=== PATIENT | male | born 1940 | race Caucasian/White ===

== ENCOUNTER 2019-10-24 20:57 | Inpatient (IN) | payer MEDICARE, SELFPAY ==
[2019-10-24] VITALS (12 sets, daily range): BP systolic 115–168; BP diastolic 53–97; PULSE 109–120; RESP 14–177; TEMP 36.8; O2SAT 87–98
--- NOTE | ~2019-10-24 | XR_ITS ---
EXAMINATION: XR chest 1V portable DATE: 10/25/2019 08:27 INDICATION: Shortness of breath TECHNIQUE: frontal view of the chest was obtained. COMPARISON: Chest radiograph dated 11/03/2019 FINDINGS: No significant change in opacities in the bilateral mid and lower lung zones. No pleural effusion or pneumothorax. The cardiomediastinal silhouette is normal. Atherosclerotic aorta. Dual lead pacemaker seen with leads projecting over the expected locations of the right atrium and right ventricle. Spina l stimulator lead projects over the central canal of the mid to lower thoracic spine. IMPRESSION: 1. Unchanged opacities in the bilateral mid and lower lung zones which could represent pulmonary ludwin a, atelectasis, pneumonia or some combination thereof. Reviewed, dictated and finalized at location A. IMPRESSION: 1. Unchanged opacities in the bilateral mid and lower lung zones which could re present pulmonary edema, atelectasis, pneumonia or some combination thereof.
--- NOTE | ~2019-10-24 | XR_ITS ---
EXAMINATION: XR chest 1V portable EXAM DATE: 10/24/2019 21:20 INDICATION: CODE BLUE, cardiac arrest. TECHNIQUE: Portable AP frontal chest x-ray was obtained. There is no prior study for comparison. FINDINGS: Moderate amount of indistinct bilateral reticulation, could be edema or developing ARDS. Mo re confluent left basilar airspace disease. Acute infectious process not excludable. The cardiomedias tinal silhouette is prominent but magnified on this AP technique. There is no pneumothorax suspected. There are no pleural effusions. There are no osseous abnormalities identified. There is a dual lead pacemaker/AICD seen with leads projecting over the expected locations of the right atrial appendage a nd right ventricle. IMPRESSION: Bilateral indistinct reticulation and more confluent left basilar airspace disease. Cons ider edema, ARDS. Can't exclude infectious process. Reviewed, dictated and finalized at location A. IMPRESSION: Bilateral indistinct reticulation and more confluent left basilar airspace disease. Consider edema, ARDS. Can't exclude infectious process.
--- NOTE | ~2019-10-24 | XR_ITS ---
EXAMINATION: XR chest 1V portable DATE: 10/26/2019 08:13 INDICATION: Aspiration pneumonia TECHNIQUE: frontal view of the chest was obtained. COMPARISON: Chest radiograph dated 10/25/2019 FINDINGS: Interval improvement in opacities in the bilateral lower lung zones. Linear discoid atelectasis/scarr ing at the left midlung zone. No pneumothorax or pleural effusion. The cardiomediastinal silhouette i s normal. Dual lead pacemaker seen with leads projecting over the expected locations of the right atr ium and right ventricle. Likely spinal stimulator lead project over the central canal of the mid thor acic spine. IMPRESSION: 1. Decreasing opacities in the bilateral lower lung zones which could represent improvement in aspira tion, pneumonia, atelectasis, pulmonary edema or some combination thereof. Reviewed, dictated and finalized at location A. IMPRESSION: 1. Decreasing opacities in the bilateral lower lung zones which could represent improvement in aspiration, pneumonia, atelectasis, pulmonary edema or some com bination thereof.
[2019-10-24] MEDS: NALOXONE HCL INJ 2 MG/2 ML AMP IV PUSH ×2 (21:02→21:21)
[2019-10-24 21:10] LABS: Glucose Point of Care 171 (65-105)
--- NOTE | 2019-10-24 21:21 | ECG_ITS ---
Measurements Intervals [place] Rate: 90 P: TX: 0 QRS: -72 QRSD: 170 T: 106 QT: 402 QTc: 494 Interpretive Statements ATRIAL SENSE- ELECTRONIC VENTRICULAR PACEMAKER SHORT RUN OF ATRIAL TACHYCARDIA AND VENTRICULAR PREMATURE COMPLEX BASELINE ARTIFACT- I, II, III, AVR, AVL NO FURTHER INTERPRETATION IS POSSIBLE ABNORMAL ECG Electronically Signed On 10-25-2019 8:04:44 CDT by Orion Gaona D.O.
--- NOTE | 2019-10-24 21:24 | ED.OVERDOSE ---
HPI - Overdose General Chief Complaint: Overdose Stated Complaint: ams Time Seen by Provider: 10/24/19 21:20 History of Present Illness HPI Narrative: Patient presents via EMS for respiratory distress. He was given Suboxone at his hotel room by a family member for his chronic pain. His respirations became decreased and his daughter saw that he was having garbled breathing. He was asleep. She is transporting him from [facility] to her home in the [place]. They took him out of the long term, so that he could stay with family during this COVID situation. He had been in rehab after getting a spine stimulator. He got the spine stimulator for his chronic back pain. His daughter wishes him to be DNR. EMS had given 3 doses of Narcan 2 mg in route. He had a pulse and was not being bagged in route. Here he was unresponsive, no pulse, and needed bagging. CPR was done for just a few minutes when his pulse resumed, he had some left leg movement, and started breathing on his own. More Narcan was given and a Narcan drip was ordered. His daughter is present with us in the ED. complaint: accidental overdose Onset (ago): hour(s) Timing confirmed by: family member Intent: other (Pain control) How Overdose Was Discovered: called family/friend and family/friend present at time Context: Intentional Overdose: other (Pain managed) Treatments Prior to Arrival: oxygen, narcan and IV fluids Related Data Home Medications Medication Instructions Recorded Confirmed alprazolam 0.5 mg PO HS PRN 10/24/19 amlodipine 5 mg PO DAILY 10/24/19 aripiprazole [Abilify] 5 mg PO DAILY 10/24/19 aspirin 81 mg PO DAILY 10/24/19 baclofen 5 mg PO DAILY 10/24/19 clopidogrel [Plavix] 75 mg PO DAILY 10/24/19 duloxetine [Cymbalta] 60 mg PO BID 10/24/19 dutasteride 0.5 mg PO DAILY 10/24/19 gabapentin 600 mg PO TID 10/24/19 levothyroxine 100 mcg PO DAILY 10/24/19 morphine 15 mg PO Q8H 10/24/19 multivit with min-folic acid mg PO 10/24/19 [Adult One Daily Multivitamin] naloxegol [Movantik] 25 mg PO DAILY 10/24/19 simvastatin 40 mg PO HS 10/24/19 tadalafil 5 mg PO DAILY 10/24/19 tamsulosin 0.4 mg PO HS 10/24/19 Allergies Allergy/AdvReac Type Severity Reaction Status Date / Time clindamycin Allergy Hives Verified 10/24/19 21:33 escitalopram [From Lexapro] Allergy Diarrhea Verified 10/24/19 21:33 metoprolol Allergy Confusion Verified 10/24/19 21:33 Sulfa (Sulfonamide Allergy Hives Verified 10/24/19 21:33 Antibiotics) venlafaxine [From Effexor] Allergy Hives Verified 10/24/19 21:33 nuts Allergy Swelling Uncoded 10/24/19 21:33 of Lip/Tongue/Throat Review of Systems Review of Systems: Narrative: Review of systems is unable to be obtained due to the patient being unresponsive. His daughter has a picture of him on her phone from yesterday where he was sitting up and visiting with the family in good humor. [facility] Past Medical History Medical History (Updated 10/24/19 @ 22:09 by Anupama Denise MD) Chronic back pain History of common carotid artery stent placement Surgical History Surgical History (Updated 10/24/19 @ 21:30 by Anupama Denise MD) History of permanent cardiac pacemaker placement Social History Social History (Updated 10/24/19 @ 21:30 by Anupama Denise MD) Smokeless tobacco user: chewing tobacco Exam Narrative: Exam Narrative: GENERAL: Patient without spontaneous breathing, no palpable pulse, nonresponsive. HEAD: Normocephalic, atraumatic. ENT: Nares clear, no rhinorrhea or epistaxis. Mucous membranes moist. Chewing tobacco and mouth. Dentures. NECK: Supple. CHEST: No spontaneous breathing HEART: No pulse ABDOMEN: Soft, nontender, nondistended, EXTREMITIES: No edema. SKIN: Warm, dry, no rash. NEURO: Unresponsive. . Course Reevaluation(s) Reevaluation #1: Went back in the room to talk to the daughter again. She is very sure that he will be DNR, DNI. She understands that she cannot visit un
[2019-10-24 21:33] LABS: Basophils Absolute Auto 0.1 K/mm3 (0.0-0.1); Basophils Percent Auto 0.7 % (0.2-1.2); Eosinophils Absolute Auto 1.1 K/mm3 (0-0.3); Eosinophils Percent Auto 6.1 % (0-4.4); Hematocrit 49.3 % (42.0-52.0); Hemoglobin 14.8 g/dL (14.0-18.0); Immature Granulocyte Absolute 0.13 K/mm3 (0.00-0.031); Immature Granulocyte Percent A 0.7 % (0-0.5); Lymphocytes Absolute Auto 5.55 K/mm3 (0.9-3.2); Lymphocytes Percent Auto 31.4 % (18.3-44.2); Mean Corpuscular Volume 93.2 fl (80-100); Mean Platelet Volume 11.5 fl (7.4-10.4); Monocytes Absolute Auto 1.5 K/mm3 (0.1-0.6); Monocytes Percent Auto 8.2 % (2.6-8.5); Neutrophils Absolute Auto 9.4 K/mm3 (1.3-6.7); Neutrophils Percent Auto 52.9 % (45.5-73.1); Platelet Count Result 341 k/mm3 (150-375); Red Blood Count 5.29 M/mm3 (4.6-6.20); Red Cell Distribution Width 15.4 % (11.5-14.5); White Blood Count 17.7 K/mm3 (4.5-10.0)
[2019-10-24 21:42] LABS: Ethanol < 10 mg/dL (<10)
[2019-10-24 21:43] LABS: INR 1.1; Prothrombin Time 14.2 Seconds (11.1-14.7)
[2019-10-24 21:44] LABS: Partial Thromboplastin Time 26.1 SECONDS (22.3-36.8)
[2019-10-24 21:45] LABS: Alveolar/Arterial O2 Gradient 122.4 mmHg; Base Excess ABG -3.8 mEq/l (+/-2.0); Fractional Inspired Oxygen 40 %; HCO3 ABG 27.6 mEq/l (22.0-26.0); Oxygen Content ABG 17.4 %vol (16.0-22.0); Oxyhemoglobin 87.3 % THb (90.0-100.0); PO2 ABG 65.3 mmHg (80.0-100.0); PO2 FiO2 Ratio Arterial Blood 1.63 %; Total Hemoglobin 14.2 g/dL (12.0-18.0)
[2019-10-24 21:46] LABS: Lactic Acid Reflex 2.3 mmol/L (0.7-2.1)
[2019-10-24 21:50] LABS: Device NASAL CANNULA; Modified Allen's Test Pass; Oxygen Saturation ABG 84.7 % (95.0-100.0); PCO2 ABG 84.8 mmHg (35.0-45.0); Site Drawn RIGHT RADIAL
--- NOTE | 2019-10-24 21:52 | PCRCNOTE ---
ABG drawn at 2139 10/24/19 possible mixed venous. Pt sating 93% on 5L NC on pulse ox monitor. notified
[2019-10-24 22:33] LABS: Add Urine Microscopic? YES; Appearance Urine Clear (Clear); Bacteria Urine Trace /hpf; Bilirubin Urine Negative (Negative); Blood Urine Negative (Negative); Color Urine Yellow (Yellow); Glucose Urine UA Negative (Negative); Ketones Urine Negative (Negative); Leukocyte Esterase Ur Negative LEU/UL (Negative); Nitrate Urine Negative (Negative); Protein Urine 2+ mg/dL (Negative); RBC Urine 0-2 /hpf (0-2); Specific Grav Ur 1.013 (1.001-1.035); Squamous Epithelial Cell Urine Rare /hpf (Few); Urobilinogen Urine Negative mg/dL (<2.0); WBC Urine 0-3 /hpf
[2019-10-24 22:39] LABS: NT Pro B Type Natriuretic Pept 185 PG/ML (5-100)
[2019-10-24 22:48] LABS: Amphetamine Screen Urine Negative (Negative); Barbiturate Screen Urine Negative (Negative); Benzodiazepines Screen Urine Positive (Negative); Cannabinoid Screen Urine Negative (Negative); Cocaine Screen Urine Negative (Negative); Methadone Screen Urine Negative (Negative); Opiate Screen Urine Negative (Negative); Phencyclidine Screen Urine Negative (Negative)
[2019-10-24 22:50] LABS: Alanine Aminotransferase 11 U/L (4-50); Albumin Level 3.4 g/dL (3.5-5.1); Alkaline Phosphatase 92 U/L (38-126); Anion Gap 6 mmol/L (8-16); Aspartate Amino Transferase 25 U/L (17-59); Bilirubin,Total < 0.1 mg/dL (0.2-1.3); Blood Urea Nitrogen 23 mg/dL (9-20); Carbon Dioxide 29 mmol/L (22-30); Chloride 105 mmol/L (98-107); Creatine Kinase 39 U/L (55-170); Estimated CRCL calculation 47 ml/min; Estimated Glomerular Filt Rate 53; Glucose 168 mg/dL (75-110); Potassium 4.1 mmol/L (3.4-5.0); Sodium 140 mmol/L (137-145)
--- NOTE | 2019-10-24 23:45 | PM.IMHP ---
H&P: HPI History of Present Illness Date/Time: 10/24/19 22:30 Chief complaint: Accidental overdose Narrative: The patient was seen and examined while in the ER. Source of information is the patient's daughter Luann Pritchard. Darnell Vera is a 80 year old male with a past medical history of coronary artery disease, peripheral vascular disease, hypertension and chronic pain who presented to the ER via EMS from a local hotel due to accidental overdose of narcotics. The patient's daughter who is a critical care nurse provided information. The patient had evidently been having progressive decline over the last 5 years. He had been living with his son for the last 5 years but his son was not no longer able to meet the patient's needs. He has chronic back pain and has had more frequent falls due to his legs giving out over the last 6 months. Approximately 2 weeks ago he was hospitalized due to mild pneumonia and was discharged to acute rehab for 2 weeks. He ran out of acute rehab days and was transitioned to longterm placement. The patient was placed any double room with no TV. The family had been informed that they would be able to visit the patient in that the patient would be able to go outside but this turned out not to be the case . The patient was placed in a double room with 1 TV and the patient was unhappy. The patient was alert and oriented x3 at baseline. His daughter did not feel comfortable with this placement so her siblings agreed to drive the patient from [place] up to our area. She met the patient at [facility] and had planned to take the patient to [facility] where she lives. They were then planning to transition the patient to hospice care. When the daughter arrived to the hotel the patient was in good spirits and watching a musical performance. However, prior to his daughter's arrival he had reported that his butt hurt. The patient's son-in-law evidently takes Suboxone due to chronic narcotic dependence and offered the patient a pain pill. The patient was becoming tired so she took him to the room. Shortly thereafter she noticed that the patient was having sonorous respirations and was cyanotic. She ran out to her car to get her pulse oximeter and when she returned to the room the patient's pulse ox was reading at 50%. she noted that is pupils were pinpoint. She called EMS. EMS administered multiple doses of Narcan in route to the hospital. When the patient was being transferred to the ER bed the patient was noted to not have any respirations and was pulseless. He received 1 round of CPR and medications with return of perfusing circulation and independent respirations. The patient was placed on a Narcan drip. Patient is noted to have very coarse breath sounds. On examination he is noted to have chewing tobacco in his mouth. The daughter informs me that the brother in all had just given the patient is chewing tobacco prior to her arrival. The patient is occasionally coughing in the ER and daughter has suctioned sputum multiple times from the patient's mouth. The patient will arouse and is oriented to his daughter's name, month, and year. He can also tell me his date and name. The patient does fall asleep rapidly but again arouses with verbal stimuli and tactile stimuli. The daughter for via the patient is chronically incontinent of urine. The patient has had a chronic decubitus ulcer to his buttock which she tells me opened a few months ago but has again healed. The buttocks are erythematous bilaterally but do kady. He does not have an open wound to his buttocks currently. He is noted to have a rash in his groin. The daughter informed me that he wears upper dentures and has a lower partial. The patient had evidently been reporting that his lower partial was causing him pain. The patient is noted to have a necrotic tooth in the left lower jaw. The few remaining teeth he has are in poor
[2019-10-25] VITALS (64 sets, daily range): BP systolic 106–160; BP diastolic 45–111; PULSE 69–118; RESP 15–29; TEMP 36.1–37.3; O2SAT 87–100
[2019-10-25 00:29] LABS: Reflex Lactic Acid Yes or No Add Lactic
[2019-10-25] MEDS: AMPICILLIN SULB 3 GM/NS 100 ML 3 GM/100 ML VIAL IVPB ×4 (00:51→19:17)
[2019-10-25 00:57] LABS: Anion Gap 6 mmol/L (8-16); Blood Urea Nitrogen 23 mg/dL (9-20); Calcium 8.1 mg/dL (8.4-10.2); Carbon Dioxide 27 mmol/L (22-30); Chloride 104 mmol/L (98-107); Estimated CRCL calculation 51 ml/min; Estimated Glomerular Filt Rate 58; Glucose 183 mg/dL (75-110); Potassium 4.6 mmol/L (3.4-5.0); Sodium 137 mmol/L (137-145)
[2019-10-25 00:57] LABS: Lactic Acid 1.6 mmol/L (0.7-2.1)
[2019-10-25 04:09] LABS: Basophils Absolute Auto 0.1 K/mm3 (0.0-0.1); Basophils Percent Auto 0.7 % (0.2-1.2); Eosinophils Absolute Auto 0.5 K/mm3 (0-0.3); Eosinophils Percent Auto 2.5 % (0-4.4); Hematocrit 48.4 % (42.0-52.0); Hemoglobin 14.2 g/dL (14.0-18.0); Immature Granulocyte Absolute 0.11 K/mm3 (0.00-0.031); Immature Granulocyte Percent A 0.6 % (0-0.5); Mean Corpuscular HGB Conc 29.3 g/dl (32-36); Mean Corpuscular Hemoglobin 27.9 pg (26-34); Mean Corpuscular Volume 95.1 fl (80-100); Mean Platelet Volume 11.3 fl (7.4-10.4); Monocytes Percent Auto 10.4 % (2.6-8.5); Neutrophils Absolute Auto 14.2 K/mm3 (1.3-6.7); Neutrophils Percent Auto 73.8 % (45.5-73.1); Platelet Count Result 296 k/mm3 (150-375); Red Blood Count 5.09 M/mm3 (4.6-6.20); Red Cell Distribution Width 15.3 % (11.5-14.5); White Blood Count 19.2 K/mm3 (4.5-10.0)
[2019-10-25 04:23] LABS: Lactic Acid Reflex 3.9 mmol/L (0.7-2.1)
[2019-10-25 04:38] LABS: Alveolar/Arterial O2 Gradient 132.6 mmHg; Base Excess ABG -1.8 mEq/l (+/-2.0); Carboxyhemoglobin 0.5 % THb (0-2.0); Fractional Inspired Oxygen 32 %; Methemoglobin ABG 0.5 %THb (0-1.5); Oxygen Content ABG 18.5 %vol (16.0-22.0); Oxyhemoglobin 90.7 % THb (90.0-100.0); PO2 ABG 63.6 mmHg (80.0-100.0); PO2 FiO2 Ratio Arterial Blood 1.99 %; Reduced Hemoglobin 8.3 %THb (0-5.0); Total Hemoglobin 14.5 g/dL (12.0-18.0)
[2019-10-25 04:41] LABS: PCO2 ABG 64.1 mmHg (35.0-45.0); pH ABG 7.243 (7.350-7.450)
[2019-10-25 04:42] LABS: Device NASAL CANNULA; Modified Allen's Test Pass; Site Drawn RIGHT RADIAL
[2019-10-25] MEDS: SODIUM CHLORIDE 0.9% IV 1,000 ML 75 ML IV CONT (09:20)
--- NOTE | 2019-10-25 09:59 | WPDCNINT ---
Assessment and Plan Assessment and plan (1) Narcotic overdose: Qualifiers: Encounter type: initial encounter Injury intent: accidental or unintentional Qualified Code(s): T40.601A - Poisoning by unspecified narcotics, accidental (unintentional), initial encounter Code(s): T40.601A - Poisoning by unspecified narcotics, accidental (unintentional), initial encounter Status: Acute Assessment and Plan: patient with accidental Suboxone overdose - patient was found to be lethargic with respiratory depression, hypoxia which led to cardiopulmonary arrest. - Patient currently on Narcan infusion, is awake, follows simple commands and hemodynamically stable - buprenorphine which is a component of Suboxone has a long half life - will wean Narcan as tolerated to adequate respiratory rate and mental status (2) Pneumonia: Qualifiers: Laterality: bilateral Lung location: unspecified part of lung Pneumonia type: due to unspecified organism Qualified Code(s): J18.9 - Pneumonia, unspecified organism Code(s): J18.9 - Pneumonia, unspecified organism Status: Acute Assessment and Plan: possible aspiration pneumonia as he was chewing tobacco prior to having a cardiopulmonary arrest. - tobacco was being suctioned ETT - patient started on Unasyn - blood cultures have been obtained and pending (3) Chronic back pain: Code(s): M54.9 - Dorsalgia, unspecified; G89.29 - Other chronic pain Status: Acute Assessment and Plan: patient with history of spinal stenosis status post spine stimulator for chronic back pain - patient was given Suboxone fall at by his son-in-law who has been taking Suboxone for chronic narcotic dependence - will avoid narcotics for pain at this time (4) Cardiopulmonary arrest: Code(s): I46.9 - Cardiac arrest, cause unspecified Status: Acute Assessment and Plan: brief cardiopulmonary arrest likely related to respiratory depression from narcotic overdose - ROSC with 1 round of epinephrine and CPR - patient is awake, alert, oriented, nonfocal (5) Hypercapnia: Code(s): R06.89 - Other abnormalities of breathing Status: Acute Assessment and Plan: hypercapnic respiratory failure related to narcotic overdose - repeat ABG shows improvement in PCO 2, continue to monitor - may require a BiPAP (6) DVT prophylaxis: Code(s): Z29.9 - Encounter for prophylactic measures, unspecified Status: Acute Assessment and Plan: SCDs Additional Plan discuss with daughter Luann, updated her with patient's condition and plan of care. I answered all questions Code status: full code critical care time spent: 42 minutes [employer] Observer Helper Consult Note Consult date: 10/25/19 Time Seen: 07:04 Reason for consult: accidental overdose of opiates /Suboxone HPI: Darnell Vera is a 80 year old male with past medical history of benzodiazepine overdose, BPH, chronic back pain, coronary artery disease, decubitus ulcer, depression, essential hypertension, history of pneumonia, gout, hyperlipidemia, hypothyroidism, peripheral vascular disease, spinal stenosis with chronic back pain, spinal stimulator presented to the ED via EMS flex and overdose with narcotics - Suboxone. history from medical records and daughter who stated that patient was given Suboxone by patient's son low as he was having lower back pain. After receiving the narcotic, patient became lethargic and the daughter noticed sonorous respirations and was cyanotic. Pulse ox red 50% on a pulse oxygen meter that the daughter had in her car, off note the daughter is a critical care nurse and [place]. Upon arrival of the EMS did give him multiple rounds of Narcan enroute to the hospital. With the patient was transferred to the ER bed he was not breathing and was pulseless.. Brief CPR with 1 round of epinephrine was done before ROSC. He was also chewing tobacco prio
[2019-10-25] MEDS: SODIUM CHLORIDE 0.9% IV 500 ML IV CONT (12:14)
--- NOTE | 2019-10-25 14:58 | PM.IMPN ---
Progress Note: A&P Assessment and Plan (1) Narcotic overdose: Qualifiers: Encounter type: initial encounter Injury intent: accidental or unintentional Qualified Code(s): T40.601A - Poisoning by unspecified narcotics, accidental (unintentional), initial encounter Code(s): T40.601A - Poisoning by unspecified narcotics, accidental (unintentional), initial encounter Status: Acute Assessment and Plan: The patient is on a Narcan drip in the ICU. The pipe coverer helper was consulted from the ER. 10/25/19 14:58 patient is 80-year-old male with several comorbidities, specially chronic back pain and recently had a spinal stimulator placed patient is traveling from [place] to [place] with his daughter who is a critical care nurse [place], patient was given his regular dose of Suboxone however became hypoxic and somnolent his daughter checked the pulse ox and was reading 50%, EMS was called patient was given Narcan which did improve his symptoms somewhat and he was brought to emergency department for further evaluation and patient was given additional Narcan as well as placed on Narcan drip, concern the patient may have aspirated while he was somnolent and chewing tobacco, currently patient is quite somnolent being treated for aspiration pneumonia and 1 Narcan drip, discussed with pipe coverer helper will continue Narcan drip and further recommendation to follow (2) Pneumonia: Qualifiers: Laterality: bilateral Lung location: unspecified part of lung Pneumonia type: due to unspecified organism Qualified Code(s): J18.9 - Pneumonia, unspecified organism Code(s): J18.9 - Pneumonia, unspecified organism Status: Acute Assessment and Plan: likely due to aspiration given that the patient was chewing tobacco at the time of his respiratory arrest. Will adjust antibiotic therapy to Unasyn. Blood cultures have been obtained. The patient is NPO until mentation improves. Aspiration precautions. (3) Respiratory arrest: Code(s): R09.2 - Respiratory arrest Status: Acute Assessment and Plan: Due to accidental narcotic overdose resulting in acute hypoxic hypercapnic respiratory failure. Continue supplemental oxygen. Repeat ABG in a.m. (4) Cardiac arrest: Code(s): I46.9 - Cardiac arrest, cause unspecified Status: Acute Assessment and Plan: Due to primary respiratory arrest from narcotic overdose. (5) Candidiasis: Code(s): B37.9 - Candidiasis, unspecified Status: Acute Assessment and Plan: Aloe Caret cream has been ordered. (6) Urinary incontinence due to benign prostatic hyperplasia: Code(s): N40.1 - Benign prostatic hyperplasia with lower urinary tract symptoms; N39.498 - Other specified urinary incontinence Status: Acute Assessment and Plan: I would like to avoid placing a Coon given the patient has chronic urinary incontinence and we would likely have difficulty with urinary retention post catheterization. Subjective Date/time seen: 10/25/19 14:58 patient is 80-year-old male with several comorbidities, specially chronic back pain and recently had a spinal stimulator placed patient is traveling from [place] to [place] with his daughter who is a critical care nurse [place], patient was given his regular dose of Suboxone however became hypoxic and somnolent his daughter checked the pulse ox and was reading 50%, EMS was called patient was given Narcan which did improve his symptoms somewhat and he was brought to emergency department for further evaluation and patient was given additional Narcan as well as placed on Narcan drip, concern the patient may have aspirated while he was somnolent and chewing tobacco, currently patient is quite somnolent being treated for aspiration pneumonia and 1 Narcan drip, discussed with pipe coverer helper will continue Narcan drip and further recommendation t
[2019-10-26] VITALS (34 sets, daily range): BP systolic 115–158; BP diastolic 51–126; PULSE 74–109; RESP 15–34; TEMP 36.4–37.4; O2SAT 89–94
[2019-10-26] MEDS: SODIUM CHLORIDE 0.9% IV 1,000 ML 75 ML IV CONT (00:06)
[2019-10-26] MEDS: AMPICILLIN SULB 3 GM/NS 100 ML 3 GM/100 ML VIAL IVPB ×4 (00:07→17:53)
[2019-10-26 08:12] LABS: Basophils Absolute Auto 0.1 K/mm3 (0.0-0.1); Basophils Percent Auto 0.5 % (0.2-1.2); Eosinophils Absolute Auto 0.5 K/mm3 (0-0.3); Eosinophils Percent Auto 3.6 % (0-4.4); Hematocrit 41.9 % (42.0-52.0); Hemoglobin 12.6 g/dL (14.0-18.0); Immature Granulocyte Absolute 0.06 K/mm3 (0.00-0.031); Immature Granulocyte Percent A 0.5 % (0-0.5); Lymphocytes Absolute Auto 1.21 K/mm3 (0.9-3.2); Lymphocytes Percent Auto 9.1 % (18.3-44.2); Mean Corpuscular HGB Conc 30.1 g/dl (32-36); Mean Corpuscular Hemoglobin 27.6 pg (26-34); Mean Corpuscular Volume 91.9 fl (80-100); Mean Platelet Volume 11.3 fl (7.4-10.4); Monocytes Absolute Auto 1.2 K/mm3 (0.1-0.6); Monocytes Percent Auto 9.2 % (2.6-8.5); Neutrophils Absolute Auto 10.3 K/mm3 (1.3-6.7); Neutrophils Percent Auto 77.1 % (45.5-73.1); Platelet Count Result 238 k/mm3 (150-375); Red Blood Count 4.56 M/mm3 (4.6-6.20); Red Cell Distribution Width 15.2 % (11.5-14.5); White Blood Count 13.3 K/mm3 (4.5-10.0)
[2019-10-26 08:24] LABS: Lactic Acid Reflex 0.6 mmol/L (0.7-2.1)
[2019-10-26 08:25] LABS: Anion Gap 4 mmol/L (8-16); Blood Urea Nitrogen 13 mg/dL (9-20); Calcium 7.6 mg/dL (8.4-10.2); Carbon Dioxide 30 mmol/L (22-30); Chloride 103 mmol/L (98-107); Estimated CRCL calculation 73 ml/min; Estimated Glomerular Filt Rate > 60; Glucose 133 mg/dL (75-110); Magnesium 1.7 mg/dL (1.6-2.3); Phosphorus 2.9 mg/dL (2.5-4.5); Sodium 137 mmol/L (137-145)
--- NOTE | 2019-10-26 11:18 | WPDINTPN ---
Progress Note: A&P Assessment and Plan (1) Narcotic overdose: Qualifiers: Encounter type: initial encounter Injury intent: accidental or unintentional Qualified Code(s): T40.601A - Poisoning by unspecified narcotics, accidental (unintentional), initial encounter Code(s): T40.601A - Poisoning by unspecified narcotics, accidental (unintentional), initial encounter Status: Acute Assessment and Plan: RESOLVED, OFF THE NARCAN INFUSION - patient with accidental Suboxone overdose - patient was found to be lethargic with respiratory depression, hypoxia which led to cardiopulmonary arrest. - PATIENT MUCH MORE AWAKE (2) Pneumonia: Qualifiers: Laterality: bilateral Lung location: unspecified part of lung Pneumonia type: due to unspecified organism Qualified Code(s): J18.9 - Pneumonia, unspecified organism Code(s): J18.9 - Pneumonia, unspecified organism Status: Acute Assessment and Plan: possible aspiration pneumonia as he was chewing tobacco prior to having a cardiopulmonary arrest. - tobacco was being suctioned ETT - patient started on Unasyn - blood cultures growing gram-positive cocci in clusters 2/2 bottles, started patient on vancomycin, - patient is afebrile, white count is trending down. If Blood cultures come back as contamination or CoNs will discontinue vancomycin (3) Chronic back pain: Code(s): M54.9 - Dorsalgia, unspecified; G89.29 - Other chronic pain Status: Acute Assessment and Plan: patient with history of spinal stenosis status post spine stimulator for chronic back pain - patient was given Suboxone fall at by his son-in-law who has been taking Suboxone for chronic narcotic dependence - will avoid narcotics for pain at this time, Tylenol for chronic back pain (4) Cardiopulmonary arrest: Code(s): I46.9 - Cardiac arrest, cause unspecified Status: Acute Assessment and Plan: brief cardiopulmonary arrest likely related to respiratory depression from narcotic overdose - ROSC with 1 round of epinephrine and CPR - patient is awake, alert, oriented, nonfocal (5) Hypercapnia: Code(s): R06.89 - Other abnormalities of breathing Status: Acute Assessment and Plan: hypercapnic respiratory failure related to narcotic overdose - repeat ABG shows improvement in PCO 2, continue to monitor - patient on 3 L nasal cannula with good O2 sats (6) DVT prophylaxis: Code(s): Z29.9 - Encounter for prophylactic measures, unspecified Status: Acute Assessment and Plan: SCDs Additional Plan discuss with daughter Luann, updated her with patient's condition and plan of care. I answered all questions Code status: full code critical care time spent: 33 minutes Subjective Date/time seen: 10/26/19 11:18 Interval history: Reason for consult: accidental overdose of opiates /Suboxone 10/26/2019: Patient is off his Narcan infusion early this morning. Patient is awake, alert oriented x2. Slightly confused. Patient does follow simple commands. Denies any chest pain, shortness of breath, abdominal pain, nausea vomiting. Complains of lower back pain. patient is hemodynamically stable, with good O2 sats on 3 L nasal cannula. Urine output has been adequate. Review of Systems Review of Systems: All systems reviewed & are unremarkable except as noted in HPI and below Exam Const: General: comfortable and no acute distress HENMT: Mouth: Yes dry mucous membranes Eyes: Sclera: sclerae normal Pupils: Equal, round and reactive pupils present Neck: Neck: supple and no JVD Resp: Effort & Inspection: normal respiratory effort Auscultation: rales and diminished lung sounds Cardio: Rate: regular rate Rhythm: regular rhythm GI: Inspection: non-distended GI Palp: Yes Soft to palpation and No Tenderness to palpation present (GI) Auscultation: normal bowel sounds : Other: deferred U
--- NOTE | 2019-10-26 11:49 | PCSTNOTE ---
Bedside swallow evaluation completed. Please see ST evaluation for details and diet recommendations.
[2019-10-26] MEDS: CLOPIDOGREL BISULFATE 75 MG TABLET PO (12:04)
[2019-10-26] MEDS: ARIPiprazole 5 MG TABLET PO (12:04)
[2019-10-26] MEDS: amLODIPine BESYLATE 5 MG TABLET PO (12:04)
[2019-10-26] MEDS: GABAPENTIN 300 MG CAPSULE 600 MG PO ×2 (12:05→17:52)
--- NOTE | 2019-10-26 14:00 | ADMGEN ---
This patient, Darnell Vera, was admitted to [facility] Surg Room 306-01. Patient/family oriented to hospital policies and general routines including ID bracelet, bed and alarms, visiting hours, pain management, procedures, bathroom and other care routines, personal items, smoking policy, room service/diet, and visiting hours. Valuables list has been completed. Information on how to activate the Rapid Response Team has been discussed. Patient/Family are encouraged to report perceived risks to care and to ask questions if they do not understand what they are told or what they should do.
--- NOTE | 2019-10-26 16:45 | PM.IMPN ---
Progress Note: A&P Assessment and Plan (1) Narcotic overdose: Qualifiers: Encounter type: initial encounter Injury intent: accidental or unintentional Qualified Code(s): T40.601A - Poisoning by unspecified narcotics, accidental (unintentional), initial encounter Code(s): T40.601A - Poisoning by unspecified narcotics, accidental (unintentional), initial encounter Status: Acute Assessment and Plan: The patient is on a Narcan drip in the ICU. The superintendent house was consulted from the ER. 10/26/19 16:46 patient is 80-year-old male with several comorbidities, specially chronic back pain and recently had a spinal stimulator placed patient is traveling from [place] to [place] with his daughter who is a critical care nurse [place], patient was given his regular dose of Suboxone however became hypoxic and somnolent his daughter checked the pulse ox and was reading 50%, EMS was called patient was given Narcan which did improve his symptoms somewhat and he was brought to emergency department for further evaluation and patient was given additional Narcan as well as placed on Narcan drip, concern the patient may have aspirated while he was somnolent and chewing tobacco, Patient was taken off Narcan drip this morning he remains clinically stable and transfer out of ICU, his daughter is present in the room, patient still somnolent somewhat arousable. has no complaint, will continue to monitor repeat x-ray in the morning and follow the blood culture, if all possible family will like to take the patient home tomorrow to [place], today chest x-ray shows some improvement repeat x-ray tomorrow morning, 1 of the blood culture shows coagulase-negative staph will recheck in the morning may consult ID for further recommendation (2) Pneumonia: Qualifiers: Laterality: bilateral Lung location: unspecified part of lung Pneumonia type: due to unspecified organism Qualified Code(s): J18.9 - Pneumonia, unspecified organism Code(s): J18.9 - Pneumonia, unspecified organism Status: Acute Assessment and Plan: likely due to aspiration given that the patient was chewing tobacco at the time of his respiratory arrest. Will adjust antibiotic therapy to Unasyn. Blood cultures have been obtained. The patient is NPO until mentation improves. Aspiration precautions. (3) Respiratory arrest: Code(s): R09.2 - Respiratory arrest Status: Acute Assessment and Plan: Due to accidental narcotic overdose resulting in acute hypoxic hypercapnic respiratory failure. Continue supplemental oxygen. Repeat ABG in a.m. (4) Cardiac arrest: Code(s): I46.9 - Cardiac arrest, cause unspecified Status: Acute Assessment and Plan: Due to primary respiratory arrest from narcotic overdose. (5) Candidiasis: Code(s): B37.9 - Candidiasis, unspecified Status: Acute Assessment and Plan: Aloe [place] cream has been ordered. (6) Urinary incontinence due to benign prostatic hyperplasia: Code(s): N40.1 - Benign prostatic hyperplasia with lower urinary tract symptoms; N39.498 - Other specified urinary incontinence Status: Acute Assessment and Plan: I would like to avoid placing a Coon given the patient has chronic urinary incontinence and we would likely have difficulty with urinary retention post catheterization. Subjective Date/time seen: 10/26/19 16:46 patient is 80-year-old male with several comorbidities, specially chronic back pain and recently had a spinal stimulator placed patient is traveling from [place] to [place] with his daughter who is a critical care nurse [place], patient was given his regular dose of Suboxone however became hypoxic and somnolent his daughter checked the pulse ox and was reading 50%, EMS was called patient was given Narcan which did improve his symptoms somewhat and he was brought to emerg
[2019-10-26] MEDS: TAMSULOSIN HCL 0.4 MG CAPSULE PO (21:03)
[2019-10-26] MEDS: SIMVASTATIN 20 MG TABLET 40 MG PO (21:05)
[2019-10-26] MEDS: DUTASTERIDE 0.5 MG CAPSULE PO (21:07)
[2019-10-27] VITALS (8 sets, daily range): BP systolic 129–146; BP diastolic 53–62; PULSE 92–110; RESP 12–22; TEMP 36.4–37.7; O2SAT 71–99
[2019-10-27] MEDS: AMPICILLIN SULB 3 GM/NS 100 ML 3 GM/100 ML VIAL IVPB ×2 (00:03→06:34)
--- NOTE | 2019-10-27 05:47 | PM.CCN ---
Critical Care Event Note Summary Code activated: No Narrative: Rapid response was called at approximately 0515. Nursing staff called rapid response after patient was hypoxic on his nasal cannula. Patient's oxygen saturations were down to 72%. The patient was having sonorous respirations. The patient was mouth breathing his nasal cannula was placed into his mouth and his oxygen saturations improved up to 88%. The patient was placed on a non-rebreather when the rapid response team arrived. The patient's oxygen saturations had improved to 100%. The patient was somnolent but would arouse to verbal stimuli. He would respond to his name but was otherwise not oriented. The patient had been admitted initially for a Suboxone overdose when he had received a family members Suboxone. The patient had been taken off of the Narcan drip yesterday as he was more aware. The patient is actually more somnolent currently the knee was at the time of my initial evaluation when he was in the ER. A stat ABG has been ordered. the patient was transition to a Venturi mask 50% on 15 L and satting 93%. The patient received 1 dose of Narcan without any change in his mentation. GENERAL: acutely ill-appearing, obese, elderly HEENT: mucous membranes are tacky, head is normocephalic atraumatic, Venturi mask in place CARDIOVASCULAR: tachycardic, irregular rhythm, heart rate 110 RESPIRATORY: sonorous respirations, regular rate ABDOMEN: distended, soft INTEGUMENT: generalized pallor, normal temperature NEUROLOGIC: somnolent, arouses to verbal stimuli but is oriented only to self PSYCHIATRIC: unable to assess EXTREMITIES: no clubbing or edema : incontinent of urine assessment and plan: 1. Acute hypoxic respiratory failure: Stat ABG has been ordered. Patient has been transition to a Venturi mask 50% on 15 L 30 minutes spent in critical care activities This case had a high probability of a clinically significant, sudden, or life threatening deterioration of this patient's condition which required my full and direct attention, intervention and personal management. Critical care time: 30 - 74 mins
[2019-10-27 06:03] LABS: Alveolar/Arterial O2 Gradient 224.4 mmHg; Base Excess ABG 2.2 mEq/l (+/-2.0); Carboxyhemoglobin 0.8 % THb (0-2.0); Fractional Inspired Oxygen 50 %; HCO3 ABG 30.7 mEq/l (22.0-26.0); Methemoglobin ABG 0.4 %THb (0-1.5); Oxygen Content ABG 17.2 %vol (16.0-22.0); Oxyhemoglobin 89.2 % THb (90.0-100.0); PO2 ABG 57.7 mmHg (80.0-100.0); PO2 FiO2 Ratio Arterial Blood 1.15 %; Reduced Hemoglobin 9.6 %THb (0-5.0); Total Hemoglobin 13.7 g/dL (12.0-18.0)
[2019-10-27 06:05] LABS: Modified Allen's Test Unable to perform; Oxygen Saturation ABG 85.8 % (95.0-100.0); PCO2 ABG 66.1 mmHg (35.0-45.0); Site Drawn RIGHT RADIAL; pH ABG 7.285 (7.350-7.450)
[2019-10-27 06:06] LABS: Device VENTURI MASK
[2019-10-27 06:53] LABS: Basophils Absolute Auto 0.1 K/mm3 (0.0-0.1); Basophils Percent Auto 0.4 % (0.2-1.2); Eosinophils Absolute Auto 0.2 K/mm3 (0-0.3); Eosinophils Percent Auto 2.1 % (0-4.4); Hematocrit 42.4 % (42.0-52.0); Hemoglobin 12.6 g/dL (14.0-18.0); Immature Granulocyte Absolute 0.06 K/mm3 (0.00-0.031); Immature Granulocyte Percent A 0.5 % (0-0.5); Lymphocytes Percent Auto 10.8 % (18.3-44.2); Mean Corpuscular HGB Conc 29.7 g/dl (32-36); Mean Corpuscular Hemoglobin 27.4 pg (26-34); Mean Corpuscular Volume 92.2 fl (80-100); Mean Platelet Volume 11.3 fl (7.4-10.4); Monocytes Absolute Auto 1.3 K/mm3 (0.1-0.6); Monocytes Percent Auto 11.6 % (2.6-8.5); Neutrophils Absolute Auto 8.3 K/mm3 (1.3-6.7); Neutrophils Percent Auto 74.6 % (45.5-73.1); Platelet Count Result 289 k/mm3 (150-375); Red Cell Distribution Width 15.1 % (11.5-14.5); White Blood Count 11.2 K/mm3 (4.5-10.0)
[2019-10-27 07:04] LABS: Anion Gap 4 mmol/L (8-16); Blood Urea Nitrogen 12 mg/dL (9-20); Calcium 7.8 mg/dL (8.4-10.2); Carbon Dioxide 32 mmol/L (22-30); Chloride 98 mmol/L (98-107); Estimated CRCL calculation 55 ml/min; Estimated Glomerular Filt Rate > 60; Glucose 191 mg/dL (75-110); Magnesium 1.9 mg/dL (1.6-2.3); Phosphorus 3.6 mg/dL (2.5-4.5); Potassium 4.1 mmol/L (3.4-5.0); Sodium 134 mmol/L (137-145)
[2019-10-27 07:26] LABS: Glucose Point of Care 174 (65-105)
[2019-10-27] MEDS: NALOXONE HCL 0.4 MG/ML VIAL IV PUSH (07:40)
[2019-10-27] MEDS: FUROSEMIDE INJ 40 MG/4 ML VIAL IV PUSH (07:41)
[2019-10-27] MEDS: ALBUTEROL SULFATE NEB 2.5 MG/3 ML INH 1.25 MG INHALATION (07:42)
[2019-10-27] MEDS: IPRATROPIUM BR 0.02% INH SOLN 0.5 MG/2.5 ML VIAL INHALATION (07:42)
[2019-10-27] MEDS: methylPREDNISolone SOD SUCC 125 MG VIAL IV PUSH (07:50)
[2019-10-27 08:15] LABS: Glucose Point of Care 208 (65-105)
--- NOTE | 2019-10-27 10:26 | PC.NURSE ---
Upon shift change/morning report, a rapid response was called, when we went to check on pt. Pt was unresponsive. Upon physical stimulation, pt would become slightly more alert. Daughter was called, once pt was more stable. Dr Smiley was present, medications were given per his orders, and vital signs are currently stable. Pt's daughter is at bedside.
--- NOTE | 2019-10-27 15:17 | PM.DS ---
DS: Admitting Diagnosis Admitting Diagnosis Admitting Diagnosis: Poisoning by unspecified narcotics, accidental (unintentional), initial encounter DS: Discharge Diagnosis Discharge Diagnosis (1) Cardiopulmonary arrest: Code(s): I46.9 - Cardiac arrest, cause unspecified Status: Acute Assessment and Plan: (1) Narcotic overdose: Qualifiers: Encounter type: initial encounter Injury intent: accidental or unintentional Qualified Code(s): T40.601A - Poisoning by unspecified narcotics, accidental (unintentional), initial encounter Code(s): T40.601A - Poisoning by unspecified narcotics, accidental (unintentional), initial encounter Status: Acute Assessment and Plan: The patient is on a Narcan drip in the ICU. The service desk specialist was consulted from the ER. 10/26/19 16:46 patient is 80-year-old male with several comorbidities, specially chronic back pain and recently had a spinal stimulator placed patient is traveling from [place] to [place] with his daughter who is a critical care nurse [place], patient was given his regular dose of Suboxone however became hypoxic and somnolent his daughter checked the pulse ox and was reading 50%, EMS was called patient was given Narcan which did improve his symptoms somewhat and he was brought to emergency department for further evaluation and patient was given additional Narcan as well as placed on Narcan drip, concern the patient may have aspirated while he was somnolent and chewing tobacco, Patient was taken off Narcan drip this morning he remains clinically stable and transfer out of ICU, his daughter is present in the room, patient still somnolent somewhat arousable. has no complaint, will continue to monitor repeat x-ray in the morning and follow the blood culture, if all possible family will like to take the patient home tomorrow to [place], today chest x-ray shows some improvement repeat x-ray tomorrow morning, 1 of the blood culture shows coagulase-negative staph will recheck in the morning may consult ID for further recommendation (2) Pneumonia: Qualifiers: Laterality: bilateral Lung location: unspecified part of lung Pneumonia type: due to unspecified organism Qualified Code(s): J18.9 - Pneumonia, unspecified organism Code(s): J18.9 - Pneumonia, unspecified organism Status: Acute Assessment and Plan: likely due to aspiration given that the patient was chewing tobacco at the time of his respiratory arrest. Will adjust antibiotic therapy to Unasyn. Blood cultures have been obtained. The patient is NPO until mentation improves. Aspiration precautions. (3) Respiratory arrest: Code(s): R09.2 - Respiratory arrest Status: Acute Assessment and Plan: Due to accidental narcotic overdose resulting in acute hypoxic hypercapnic respiratory failure. Continue supplemental oxygen. Repeat ABG in a.m. (4) Cardiac arrest: Code(s): I46.9 - Cardiac arrest, cause unspecified Status: Acute Assessment and Plan: DS: Summary Hospital Course Reason for hospitalization: Darnell Vera is a 80 year old male with a past medical history of coronary artery disease, peripheral vascular disease, hypertension and chronic pain who presented to the ER via EMS from a local hotel due to accidental overdose of narcotics. The patient's daughter who is a critical care nurse provided information. The patient had evidently been having progressive decline over the last 5 years. He had been living with his son for the last 5 years but his son was not no longer able to meet the patient's needs. He has chronic back pain and has had more frequent falls due to his legs giving out over the last 6 months. Approximately 2 weeks ago he was hospitalized due to mild pneumonia and was discharged to acute rehab for 2 weeks. He ran out of acute rehab days and was transitioned to jail placement.
--- NOTE | 2019-10-27 17:27 | PC.NURSE ---
Pt is being discharged and readmitted under hospice care on this date and at this time. Please see new record.
--- NOTE | 2019-10-27 17:30 | PM.IMHP ---
H&P: HPI History of Present Illness Date/Time: 10/27/19 17:30 Chief complaint: Accidental overdose Narrative: Darnell Vera is a 79 year old male who had just completed a 2 week stint of long-term rehab. Because he did not want to stay in assisted care nursing, his daughter from [place] came to get him from the correction in [place]. The patient does have underlying dementia. In the past 6 months he has been falling several times at home. He walks with a walker. His memory has been failing although he is usually oriented to person place and time. He has been incontinent of urine consistently and stool occasionally. His appetite has been good. He did gain weight from 215-240. He did have a bedsore that was healed while an long-term rehab. Prior to the long-term rehab he was living at home alone. He spent most the time in his recliner watching television. He may get up to go to the bathroom intermittently. He developed a large bedsore over his sacrum. [place] way [place], they stopping [facility]. The patient has a history of chronic back pain and chronic buttock pain since his pressure sore. He was on hydrocodone 10 mg t.i.d. to q.i.d. p.r.n. up until about May of this year. Because he was complaining of fairly bed back pain his son along was traveling with them gave him a 2 mg Suboxone dose. This was on October 23. Later that evening the daughter noted that the patient was gurgling. She pulled out a pulse oximeter and got 38% as his pulse ox. 911 was called. He received Narcan multiple times in the ambulance had a respiratory arrest been the emergency department and was placed on a Narcan drip. He was treated with antibiotics for pneumonia and blood cultures Were drawn. The blood cultures grew coagulase-negative staph in 2/2 bottles. The patient does have a spinal stimulator in his back. The Narcan drip was stopped on October 25 in the morning. He ate well yesterday and was more alert. However in the early childhood specialist hours of October 26, he experienced another respiratory arrest with a rapid response call. 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 They wish that he be admitted inpatient hospice due to his ongoing issues with pain and confusion. Review of Systems Review of Systems: ROS unobtainable: Yes unobtainable due to medical condition PMFSH Past Medical History Medical History Benzodiazepine overdose intentional benzodiazepine overdose in 1988 following the of his daughter due to trauma BPH (benign prostatic hyperplasia) Chronic back pain Coronary artery disease Decubitus ulcer Depression Essential hypertension Frequent episodes of pneumonia at least twice a year Gout Hyperlipidemia Hypothyroidism Peripheral vascular disease Spinal stenosis Therapeutic opioid induced constipation Surgical History Surgical History H/O cervical spine surgery History of heart artery stent 2007 History of left-sided carotid endarterectomy History of permanent cardiac pacemaker placement the patient was undergoing leftcarotid endarterectomy when he had a cardiac arrest due to unstable cardiac rhythm in 2009 and had a pacemaker placed Status post insertion of spinal cord stimulator 2018 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 One of his daughters was murdered in 1988. He has 1 son and 2 manfred
== END 2019-10-27 17:31 | disposition hospice, home (50) | DRG 917 ==
LOC: ANHED 22:42 → ANHICU 23:07 → ANH3MEDSUR 10-26 17:57 → ANHICU 10-31 13:05
PROVIDERS: Internal Medicine; Admitting Provider Internal Medicine; Emergency Provider Emergency Medicine; Visit Provider Family Medicine
DX: T40.4X1A Poisoning by other synthetic narcotics, accidental (unintentional), initial encounter (principal); J69.0 Pneumonitis due to inhalation of food and vomit; J96.02 Acute respiratory failure with hypercapnia; J96.01 Acute respiratory failure with hypoxia; I46.8 Cardiac arrest due to other underlying condition; E87.2 Acidosis; I25.10 Atherosclerotic heart disease of native coronary artery without angina pectoris; N40.1 Benign prostatic hyperplasia with lower urinary tract symptoms; N39.498 Other specified urinary incontinence; B37.9 Candidiasis, unspecified; F17.220 Nicotine dependence, chewing tobacco, uncomplicated; G89.4 Chronic pain syndrome; I73.9 Peripheral vascular disease, unspecified; I10 Essential (primary) hypertension; E78.5 Hyperlipidemia, unspecified; E03.9 Hypothyroidism, unspecified; M48.00 Spinal stenosis, site unspecified; Z66 Do not resuscitate; E66.9 Obesity, unspecified; Z68.31 Body mass index [BMI] 31.0-31.9, adult; Z95.5 Presence of coronary angioplasty implant and graft; Z95.0 Presence of cardiac pacemaker
CPT/HCPCS: 36415; 36600; 51701; 71045; 80048; 80053; 80307; 81001; 82375; 82550; 82805; 82948; 83050; 83605; 83735; 83880; 84100; 85025; 85610; 85730; 87040; 87077; 87186; 92610; 93005; 94640; 96365; 96367; 96375; 97161; 97166; 99291; A9270; J0131; J0171; J0295; J0456; J0696; J1940; J2310; J2930; J3370; J7030; J7040; J7050

== ENCOUNTER 2019-10-27 17:31 | HOS | payer OTHER, MEDICARE, SELFPAY ==
--- NOTE | 2019-10-27 17:44 | HP_ITS ---
This report was moved to the correct visit [id number] on October 31, 2019. Original report was signed by Dr. Abad on October 27, 2019 at 1748. H&P: HPI History of Present Illness Date/Time: 10/27/19 17:30 Chief complaint: Accidental overdose Narrative: Darnell Vera is a 79 year old male who had just completed a 2 week stint of snf rehab. Because he did not want to stay in [facility] care nursing, his daughter from [place] came to get him from the shelter in [place]. The patient does have underlying dementia. In the past 6 months he has been falling several times at home. He walks with a walker. His memory has been failing although he is usually oriented to person place and time. He has been incontinent of urine consistently and stool occasionally. His appetite has been good. He did gain weight from 215-240. He did have a bedsore that was healed while an snf rehab. Prior to the snf rehab he was living at home alone. He spent most the time in his recliner watching television. He may get up to go to the bathroom intermittently. He developed a large bedsore over his sacrum. Part way through their journey from [place] to [place], they stopping [facility] To [facility]. The patient has a history of chronic back pain and chronic buttock pain since his pressure sore. He was on hydrocodone 10 mg t.i.d. to q.i.d. p.r.n. up until about May of this year. Because he was complaining of fairly bed back pain his son along was traveling with them gave him a 2 mg Suboxone dose. This was on October 23. Later that evening the daughter noted that the patient was gurgling. She pulled out a pulse oximeter and got 38% as his pulse ox. 911 was called. He received Narcan multiple times in the ambulance had a respiratory arrest been the emergency department and was placed on a Narcan drip. He was treated with antibiotics for pneumonia and blood cultures Were drawn. The blood cultures grew coagulase-negative staph in 2/2 bottles. The patient does have a spinal stimulator in his back. The Narcan drip was stopped on October 25 in the morning. He ate well yesterday and was more alert. However in the teacher early childhood development hours of October 26, he experienced another respiratory arrest with a rapid response call. 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 They wish that he be admitted inpatient hospice due to his ongoing issues with pain and confusion. Review of Systems Review of Systems: ROS unobtainable: Yes unobtainable due to medical condition PMFSH Past Medical History Medical History Benzodiazepine overdose intentional benzodiazepine overdose in 1988 following the of his daughter due to trauma BPH (benign prostatic hyperplasia) Chronic back pain Coronary artery disease Decubitus ulcer Depression Essential hypertension Frequent episodes of pneumonia at least twice a year Gout Hyperlipidemia Hypothyroidism Peripheral vascular disease Spinal stenosis Therapeutic opioid induced constipation Surgical History Surgical History H/O cervical spine surgery History of heart artery stent 2007 History of left-sided carotid endarterectomy History of permanent cardiac pacemaker placement the patient was undergoing leftcarotid endarterectomy when he had a cardiac arrest due to unstable cardiac rhythm in 2009 and had a pacemaker placed Status post insertion of spinal cord stimulator 2018 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
[2019-10-28 06:00] VITALS: BP 184/83; PULSE 100; RESP 22; TEMP 36.4; O2SAT 95
[2019-10-28 06:38] VITALS: BP 110/50; PULSE 75; RESP 18; TEMP 36.8; O2SAT 96
[2019-10-28 08:00] VITALS: O2SAT 94
[2019-10-28] MEDS: GABAPENTIN 300 MG CAPSULE 600 MG PO ×2 (13:11→17:14)
[2019-10-28 14:00] VITALS: BP 121/56; PULSE 100; RESP 16; TEMP 36.8; O2SAT 96
--- NOTE | 2019-10-28 16:38 | PM.IMPN ---
Progress Note: A&P Assessment and Plan (1) Palliative care by specialist: Code(s): Z51.5 - Encounter for palliative care Status: Acute Assessment and Plan: Improved Logistics of resumption of trip to [place] d/w daughter at bedside (2) Bacteremia: Code(s): R78.81 - Bacteremia Status: Acute Assessment and Plan: coag neg jeremy, possibly due to decubitus ulcer with seeding of devices (pacer and spinal stimulator) (3) Acute respiratory failure with hypoxia and hypercarbia: Code(s): J96.01 - Acute respiratory failure with hypoxia; J96.02 - Acute respiratory failure with hypercapnia Status: Acute Assessment and Plan: Oxygen titrated down to 2 L at rest, 4 L while sleeping Home oxygen evaluation, [employer] to provide oxygen for trip (pt will revoke hospice and sign up for hospice when he arrives in [place]), dtr from NH to return O2 on her way home (4) Urinary incontinence due to benign prostatic hyperplasia: Code(s): N40.1 - Benign prostatic hyperplasia with lower urinary tract symptoms; N39.498 - Other specified urinary incontinence Status: Acute Assessment and Plan: Had 1200ml urinary retention prior to Coon BPH meds resumed (5) Pneumonia: Qualifiers: Laterality: bilateral Lung location: unspecified part of lung Pneumonia type: due to unspecified organism Qualified Code(s): J18.9 - Pneumonia, unspecified organism Code(s): J18.9 - Pneumonia, unspecified organism Status: Acute Assessment and Plan: Likely due to aspiration Resume antibx at daughter's request -- Unasyn (6) Narcotic overdose: Qualifiers: Encounter type: initial encounter Injury intent: accidental or unintentional Qualified Code(s): T40.601A - Poisoning by unspecified narcotics, accidental (unintentional), initial encounter Code(s): T40.601A - Poisoning by unspecified narcotics, accidental (unintentional), initial encounter Status: Acute Assessment and Plan: Resolved (7) Respiratory arrest: Code(s): R09.2 - Respiratory arrest Status: Acute Assessment and Plan: Resolved (8) Status post insertion of spinal cord stimulator: Code(s): Z96.89 - Presence of other specified functional implants Status: Acute (9) History of permanent cardiac pacemaker placement: Code(s): Z95.0 - Presence of cardiac pacemaker Status: Acute Subjective Date/time seen: 10/28/19 16:38 Interval history: 10/27 More awake earlier today. Denied pain. Never got morphine. Large BM. Daughter would like to resume antibx. Review of Systems Review of Systems: ROS unobtainable: Yes unobtainable due to medical condition Exam Narrative: Exam Narrative: HEENT: EOMI, PERRL, sclerae nonicteric, pharyngeal mucosa pink and intact NECK: No JVD, adenopathy, or thyromegaly CHEST: Clear to auscultation with decr BS at bases. Normal effort. HEART: NL S1/S2, regular, no murmur ABDOMEN: BS+, soft, nontender, no mass, no bruits EXTREMITIES: No cyanosis, edema, or clubbing NEUROLOGIC: CN intact and symmetric to inspection. MUSCULOSKELETAL: Tone and strength symmetric. PSYCH: Drowsy but arouses to voice. Oriented to person only Objective Data Vital Signs Vital Signs: Vital Signs - 24 hr 10/28/19 06:00 10/28/19 06:38 10/28/19 08:00 Temperature 97.6 F 98.2 F Pulse Rate 100 75 Respiratory Rate 22 H 18 Blood Pressure 184/83 H 110/50 L Pulse Oximetry 95 96 94 10/28/19 14:00 Temperature 98.2 F Pulse Rate 100 Respiratory Rate 16 Blood Pressure 121/56 L Pulse Oximetry 96 Intake/Output Intake/Output: Intake & Output 10/25/19 10/26/19 10/27/19 10/28/19 23:59 23:59 23:59 23:59 Intake Total 120 Output Total 850 Balance -730 Meds/Results Medications: Active Medications Generic Name Dose Route Start Last Admin Trade Name Freq PRN Reason Stop Dose Admin Acetaminophen 650 mg
[2019-10-28] MEDS: DULoxetine HCL 60 MG CAPSULE.DR PO (17:14)
[2019-10-28] MEDS: AMPICILLIN SULB 3 GM/NS 100 ML 3 GM/100 ML VIAL IVPB (18:34)
[2019-10-28 20:00] VITALS: BP 126/52; PULSE 74; RESP 22; TEMP 36.6; O2SAT 94
[2019-10-28] MEDS: TAMSULOSIN HCL 0.4 MG CAPSULE PO (21:30)
[2019-10-28] MEDS: SIMVASTATIN 20 MG TABLET 40 MG PO (21:30)
[2019-10-28] MEDS: DUTASTERIDE 0.5 MG CAPSULE PO (21:30)
[2019-10-28 21:47] VITALS: O2SAT 94
[2019-10-29] VITALS (7 sets, daily range): BP systolic 124; BP diastolic 40; PULSE 70–85; RESP 18; TEMP 36.2; O2SAT 79–96
[2019-10-29] MEDS: AMPICILLIN SULB 3 GM/NS 100 ML 3 GM/100 ML VIAL IVPB ×3 (06:26→11:54)
[2019-10-29] MEDS: LEVOTHYROXINE SODIUM 100 MCG TABLET PO (07:00)
[2019-10-29] MEDS: GABAPENTIN 300 MG CAPSULE 600 MG PO ×3 (08:29→17:16)
[2019-10-29] MEDS: CLOPIDOGREL BISULFATE 75 MG TABLET PO (08:29)
[2019-10-29] MEDS: ARIPiprazole 5 MG TABLET PO (08:29)
[2019-10-29] MEDS: ASPIRIN 81 MG CHEWABLE TABLET PO (08:29)
[2019-10-29] MEDS: DULoxetine HCL 60 MG CAPSULE.DR PO ×2 (08:29→17:16)
--- NOTE | 2019-10-29 10:41 | HOMEO2EVAL ---
Home Oxygen Evaluation RC: Home Oxygen (O2) Evaluation Start: 10/28/19 17:10 Freq: ONCE Status: Active Protocol: RPE Activity Type Activity Date Activity User E-Sign Co-Sign Detail Recorded Client Recorded Date Recorded By Document 10/29/19 10:05 [email or web address] [email or web address] 10/29/19 10:41 DJO Document 10/29/19 10:10 [email or web address] [email or web address] 10/29/19 10:41 DJO Document 10/29/19 10:15 [email or web address] [email or web address] 10/29/19 10:41 DJO Document 10/29/19 10:20 [email or web address] [email or web address] 10/29/19 10:41 DJO Document 10/29/19 10:25 [email or web address] [email or web address] 10/29/19 10:41 DJO 10/29/19 10/29/19 10/29/19 10:05 10:10 10:15 Home O2 Evaluation Test Phase Resting Resting Resting Oxygen Delivery Room Air Nasal Cannula Nasal Cannula Oxygen Flow Rate (L/min) 1 2 Pulse Oximetry (90-100 %) 79 L 81 L 84 L Pulse Rate (60-100 beats/min) 82 85 78 Home Oxygen Evaluation Comments Treatment Charges O2 Evaluation 10/29/19 10/29/19 10:20 10:25 Home O2 Evaluation Test Phase Resting Resting Oxygen Delivery Nasal Cannula Nasal Cannula Oxygen Flow Rate (L/min) 3 4 Pulse Oximetry (90-100 %) 87 L 90 Pulse Rate (60-100 beats/min) 78 70 Home Oxygen Evaluation Comments PT NONAMBULATORY Treatment Charges
--- NOTE | 2019-10-29 14:58 | PM.DS ---
DS: Admitting Diagnosis Admitting Diagnosis Admitting Diagnosis: Encounter for palliative care for respiratory failure DS: Discharge Diagnosis Discharge Diagnosis (1) Palliative care by specialist: Code(s): Z51.5 - Encounter for palliative care Status: Acute (2) Acute respiratory failure with hypoxia and hypercarbia: Code(s): J96.01 - Acute respiratory failure with hypoxia; J96.02 - Acute respiratory failure with hypercapnia Status: Acute (3) Bacteremia: Code(s): R78.81 - Bacteremia Status: Acute (4) Dementia: Qualifiers: Dementia type: unspecified type Dementia behavioral disturbance: without behavioral disturbance Qualified Code(s): F03.90 - Unspecified dementia without behavioral disturbance Code(s): F03.90 - Unspecified dementia without behavioral disturbance Status: Acute (5) Pneumonia: Qualifiers: Laterality: bilateral Lung location: unspecified part of lung Pneumonia type: due to unspecified organism Qualified Code(s): J18.9 - Pneumonia, unspecified organism Code(s): J18.9 - Pneumonia, unspecified organism Status: Acute (6) Cardiopulmonary arrest: Code(s): I46.9 - Cardiac arrest, cause unspecified Status: Acute (7) Status post insertion of spinal cord stimulator: Code(s): Z96.89 - Presence of other specified functional implants Status: Acute (8) History of permanent cardiac pacemaker placement: Code(s): Z95.0 - Presence of cardiac pacemaker Status: Acute DS: Summary Hospital Course Reason for hospitalization: palliative care for respiratory failure Hospital Course: Admitted for palliative care due to pneumonia and respiratory failure after accidental narcotic overdose. Patient improved prior to initiation of IV morphine. His oxygen requirement decreased, he became more alert, and was able to respond to simple commands. He tolerated food. [place] he was traveling from [place], his daughter wished to transport him by car to [place]. He was discharged from hospice to resume his journey to [place]. Upon their arrival to the daughter's home in [place], she planned to enroll him in a local hospice program. After improvement, antibiotics were resumed (Unasyn 3 gm IV q 6 hr) and oxygen was weaned from 15L to 4L. At the time of discharge, he required oxygen at 4 LPM by nasal cannula. Status at Discharge Functional status at discharge: bed bound Time Spent with Patient Time attestation: Total time spent providing and/or coordinating discharge services: Time spent: Greater than 30 minutes Discharge Plan Discharge Attending physician on discharge: Victor Hugo Abad Discharging Clinician: Victor Hugo Abad Patient Disposition: Hospice - Home Activity: as tolerated Diet: as tolerated Wound Care Instructions: keep dressing dry Discharge Instructions: Keep mepilex in place until evaluated by Hospice in [place]. Contact hospice in [place] when you reach home. Patient Instructions: Hospice Care (GEN), Using Oxygen at Home (DC), Acute Respiratory Failure (GEN) Stand Alone Forms: General Discharge Information Discharge Medications: New morphine concentrate 100 mg/5 mL (20 mg/mL) solution 5 mg PO Q4H PRN (Reason: pain) Qty: 30 RF: 0 acetaminophen [Mapap (acetaminophen)] 325 mg Tablet 650 mg PO Q6H PRN (Reason: Mild Pain (1-3) Or Fever) Qty: 0 RF: 0 Continued gabapentin 600 mg Tablet 600 mg PO TID RF: 0 clopidogrel [Plavix] 75 mg Tablet 75 mg PO DAILY RF: 0 levothyroxine 100 mcg Tablet 100 mcg PO DAILY RF: 0 duloxetine [Cymbalta] 60 mg Capsule,Delayed Release(Dr/Ec) 60 mg PO BID RF: 0 tamsulosin 0.4 mg Capsule 0.4 mg PO HS RF: 0 aspirin 81 mg Tablet,Chewable 81 mg PO DAILY RF: 0 dutasteride 0.5 mg Capsule 0.5 mg PO HS RF: 0 tadalafil 5 mg Tablet 5 mg PO HS RF: 0 aripiprazole [Abilify] 2 mg Tablet 5 mg PO DAILY RF: 0 Movantik 25 mg Tablet
== END 2019-10-29 17:50 | disposition hospice, home (50) | DRG 951 ==
PROVIDERS: Admitting Provider Internal Medicine; PCP Internal Medicine; Visit Provider Internal Medicine
DX: Z51.5 Encounter for palliative care (principal); J96.01 Acute respiratory failure with hypoxia; J96.02 Acute respiratory failure with hypercapnia; J18.9 Pneumonia, unspecified organism; R78.81 Bacteremia; F03.90 Unspecified dementia, unspecified severity, without behavioral disturbance, psychotic disturbance, mood disturbance, and anxiety; N40.1 Benign prostatic hyperplasia with lower urinary tract symptoms; N39.498 Other specified urinary incontinence; M54.5 Low back pain; G89.29 Other chronic pain; Z96.89 Presence of other specified functional implants; M10.9 Gout, unspecified; I25.10 Atherosclerotic heart disease of native coronary artery without angina pectoris; I10 Essential (primary) hypertension; E78.5 Hyperlipidemia, unspecified; I73.9 Peripheral vascular disease, unspecified; Z79.82 Long term (current) use of aspirin; Z79.899 Other long term (current) drug therapy; Z86.74 Personal history of sudden cardiac arrest; Z95.0 Presence of cardiac pacemaker; Z95.5 Presence of coronary angioplasty implant and graft; Z95.828 Presence of other vascular implants and grafts
CPT/HCPCS: 94618; A9270; J0295